=== PATIENT | female | born 1945 | race Asian ===

== ENCOUNTER 2016-08-15 09:44 | Emergency (ER) | payer OTHER ==
[~2016-08-15] VITALS: Ht 160 cm; Wt 69.4 kg
[2016-08-15 09:45] VITALS: BP 127/78; PULSE 63; RESP 18; TEMP 98.1; O2SAT 98
--- NOTE | 2016-08-15 09:45 | NUR ---
BROUGHT BACK TO BED #3 AND TRIAGED. REPORT GIVEN TO MICHAEL
--- NOTE | 2016-08-15 10:10 | NUR ---
Pt c/o right knee pain after falling on it 2 months ago. Has seen PMD who referred her to [facility] for follow. She states that she has appointment next week with them but "I can't take the pain". Ambulatory with steady gait. Taking motrin 600mg for pain which pt states it hurts her stomache. No deformity, no redness, no swelling noted.
--- NOTE | 2016-08-15 10:26 | NUR ---
DR LYONS AT BEDSIDE FOR EVALUATION
[2016-08-15] MEDS ORDERED: KETOROLAC TROMETHAMINE 60 MG/2 ML VIAL IM ONE (10:30)
--- NOTE | 2016-08-15 11:18 | NUR ---
Medicated with Toradol per Dr. Momin's order for 8 right knee pain awaiting re evaluation by Dr. Momin
[2016-08-15 11:27] LABS: BASOPHILS % (AUTO) 0.3 % (0.0-2.0); EOSINOPHILS # (AUTO) 0.2 K/uL (0.0-0.4); HEMATOCRIT 39.1 % (36-48); HEMOGLOBIN 13.1 g/dL (12.0-16.0); LYMPHOCYTES # (AUTO) 1.9 K/uL (1.0-5.5); LYMPHOCYTES % (AUTO) 34.1 % (20.5-51.5); MEAN CORPUSCULAR HEMOGLOBIN 30 pg (27-31); MEAN CORPUSCULAR HGB CONC 33 % (32-36); MEAN CORPUSCULAR VOLUME 89 fL (79.0-98.0); MONOCYTES # (AUTO) 0.4 K/uL (0.0-1.0); NEUTROPHILS % (AUTO) 55.6 % (40.0-70.0); PLATELET COUNT (AUTO) 182 K/uL (130-430); RED BLOOD CELL COUNT(AUTO) 4.42 MIL/uL (4.2-6.2); RED CELL DISTRIBUTION WIDTH 12.8 % (9.0-15.0); WHITE BLOOD COUNT (AUTO) 5.5 K/uL (4.8-10.8)
[2016-08-15 11:30] LABS: ANION GAP 7 (5-15); CALCIUM 9.1 mg/dL (8.4-11.0); CHLORIDE 102 mmol/L (98-107); CREATININE 0.58 mg/dL (0.55-1.30); GLUCOSE 96 mg/dL (70-99); POTASSIUM 4.2 mmol/L (3.5-5.1); SODIUM SERUM 138 mmol/L (136-145); UREA NITROGEN, BLOOD 13 mg/dL (8-21)
[2016-08-15 11:34] LABS: ALANINE AMINOTRANSFERASE 25 U/L (12-78); ALBUMIN 3.8 g/dL (3.4-4.8); ASPARTATE AMINOTRANSFERASE 20 U/L (10-37); TOTAL BILIRUBIN 0.4 mg/dL (0.0-1.0); TOTAL PROTEIN, SERUM 7.6 g/dL (6.4-8.3); URIC ACID 4.1 mg/dL (2.4-7.0)
[2016-08-15 12:41] VITALS: BP 121/74; PULSE 70; RESP 19; TEMP 98.1; O2SAT 99
--- NOTE | 2016-08-15 12:42 | NUR ---
Patient given written and verbal discharge instructions and verbalizes understanding. ER MD discussed with patient the results and treatment provided. Patient in stable condition. ID arm band removed. Rx of Motrin 600mg Quant 30 and [place] 5/325mg quant 20 given. Patient educated on pain management and to follow up with PMD. Pain Scale 0/10. Opportunity for questions provided and answered.
== END 2016-08-15 12:39 | disposition home or self-care (01) ==
LOC: SED 09:44
DX: M25.561 Pain in right knee (principal); Z88.5 Allergy status to narcotic agent
CPT/HCPCS: 36415; 73560; 80053; 84550; 85025; 96372; 99285; J1885

== ENCOUNTER 2017-12-06 21:51 | Emergency (ER) | payer OTHER ==
[~2017-12-06] VITALS: Ht 167.6 cm; Wt 63.5 kg
[2017-12-06 22:25] VITALS: BP_SYST 144
--- NOTE | 2017-12-06 22:25 | NUR ---
Patient triaged and placed in waiting room. VSS and patient appears in no acute distress at this time. Accompanied by family, awaiting available bed, and MD notified of need for MSE.
--- NOTE | 2017-12-06 23:00 | NUR ---
Pt has a rash underneath her breasts. Pt states it itchy. No pain. Will continue to monitor. No distress noted.
--- NOTE | 2017-12-06 23:00 | NUR ---
Placed in hallway.
--- NOTE | 2017-12-06 23:20 | NUR ---
ER Dr. Xiao at bedside examining patient.
[2017-12-06 23:55] VITALS: BP_SYST 144
--- NOTE | 2017-12-06 23:55 | NUR ---
Patient given written and verbal discharge instructions and verbalizes understanding. ER MD discussed with patient the results and treatment provided. Patient in stable condition. ID arm band removed. Rx of Lotrimin given. Patient educated on pain management and to follow up with PMD. Pain Scale 0/10. Opportunity for questions provided and answered. Medication side effect fact sheet provided.
== END 2017-12-06 23:55 | disposition home or self-care (01) ==
LOC: SED 21:51
DX: B35.4 Tinea corporis (principal); R03.0 Elevated blood-pressure reading, without diagnosis of hypertension; Z88.5 Allergy status to narcotic agent
CPT/HCPCS: 99281; 99282

== ENCOUNTER 2021-10-17 08:21 | Emergency (ER) | payer OTHER ==
[~2021-10-17] VITALS: Ht 165.1 cm; Wt 66.7 kg
[2021-10-17 08:21] VITALS: BP_SYST 146
[2021-10-17 09:15] LABS: BILIRUBIN,URINE NEGATIVE (NEGATIVE); CLARITY/URINE CLEAR (CLEAR); COLOR,URINE YELLOW (YELLOW); GLUCOSE,URINE NEGATIVE (NEGATIVE); KETONES,URINE NEGATIVE (NEGATIVE); LEUKOCYTE ESTERASE ,URINE TRACE (NEGATIVE); NITRITE, URINE NEGATIVE (NEGATIVE); PROTEIN URINE NEGATIVE (NEGATIVE); UROBILINOGEN,URINE 0.2 (0.2-1.0)
[2021-10-17 09:20] LABS: BLOOD, URINE TRACE (NEGATIVE)
[2021-10-17 09:35] LABS: ANION GAP 7 (5-15); BASOPHILS % (AUTO) 0.5 % (0.0-2.0); CALCIUM 9.3 mg/dL (8.4-11.0); CHLORIDE 105 mmol/L (98-107); CREATININE 0.77 mg/dL (0.55-1.30); EOSINOPHILS # (AUTO) 0.2 K/uL (0.0-0.4); EOSINOPHILS % (AUTO) 4.1 % (0.0-4.0); GLUCOSE 124 mg/dL (70-99); HEMATOCRIT 39.2 % (36-48); LYMPHOCYTES # (AUTO) 1.6 K/uL (1.0-5.5); LYMPHOCYTES % (AUTO) 34.5 % (20.5-51.5); MEAN CORPUSCULAR HEMOGLOBIN 29 pg (27-31); MEAN CORPUSCULAR HGB CONC 33 % (32-36); MEAN CORPUSCULAR VOLUME 88 fL (79.0-98.0); MONOCYTES # (AUTO) 0.3 K/uL (0.0-1.0); MONOCYTES % (AUTO) 7.1 % (1.7-9.3); NEUTROPHILS # (AUTO) 2.5 K/uL (1.8-7.7); NEUTROPHILS % (AUTO) 53.8 % (40.0-70.0); PLATELET COUNT (AUTO) 175 K/uL (130-430); POTASSIUM 4.2 mmol/L (3.5-5.1); RED BLOOD CELL COUNT(AUTO) 4.46 MIL/uL (4.2-6.2); RED CELL DISTRIBUTION WIDTH 14.1 % (9.0-15.0); SODIUM SERUM 138 mmol/L (136-145); UREA NITROGEN, BLOOD 19 mg/dL (8-21); WHITE BLOOD COUNT (AUTO) 4.6 K/uL (4.8-10.8)
[2021-10-17 09:36] LABS: BARBITURATE, URINE NEGATIVE (NEG <=200); BENZODIAZEPINE, URINE NEGATIVE (NEG <=150); CANNABINOID, URINE NEGATIVE (NEG <=50); COCAINE, URINE NEGATIVE (NEG <=150); METHAMPHETAMINES SCREEN,URINE NEGATIVE (NEG <=500); OPIATE, URINE NEGATIVE (NEG <=100); PHENCYCLIDINE SCREEN,URINE NEGATIVE (NEG <=25); UR TRICYCLIC ANTIDEPRESSANTS NEGATIVE (NEG <=300); URINE AMPHETAMINE NEGATIVE (NEG <=500); URINE METHADONE NEGATIVE (NEG <=200); URINE OXYCODONE SCREEN NEGATIVE (NEG <=100); URINE PROPOXYPHENE SCREEN NEGATIVE (NEG <=300)
[2021-10-17 09:44] LABS: ACETAMINOPHEN < 1 ug/mL (1-30); ALANINE AMINOTRANSFERASE 26 U/L (12-78); ALBUMIN 3.6 g/dL (3.4-4.8); ALCOHOL, BLOOD < 3 mg/dL (<10); ASPARTATE AMINOTRANSFERASE 25 U/L (10-37); TOTAL BILIRUBIN 0.1 mg/dL (0.0-1.0)
[2021-10-17 10:16] LABS: BACTERIA,URINE FEW /HPF (None Seen); RBC,URINE 0-3 /HPF (0-3)
[2021-10-17 10:17] LABS: MUCUS,URINE 1+ /LPF (None Seen)
[2021-10-17 10:45] VITALS: BP_SYST 139
== END 2021-10-17 10:45 | disposition home or self-care (01) ==
LOC: SED 08:21
DX: R00.1 Bradycardia, unspecified (principal); R42 Dizziness and giddiness; Z88.5 Allergy status to narcotic agent
CPT/HCPCS: 36415; 70450; 71045; 76376; 80053; 80307; 81000; 84484; 85025; 87086; 99285; G0480; G0481; G0482

== ENCOUNTER 2023-06-24 09:36 | Emergency (ER) | payer OTHER ==
[~2023-06-24] VITALS: Ht 162.6 cm; Wt 67.1 kg
[2023-06-24 09:45] VITALS: PULSE 80; TEMP 97.5; O2SAT 98
[2023-06-24] MEDS ORDERED: SULF1TAB48 PO (10:53)
[2023-06-24] MEDS ORDERED: PRED50TA PO (10:53)
== END 2023-06-24 11:03 | disposition home or self-care (01) ==
LOC: SED 09:36
DX: L03.113 Cellulitis of right upper limb (principal); Z88.5 Allergy status to narcotic agent; Z79.899 Other long term (current) drug therapy
CPT/HCPCS: 99283